=== PATIENT | female | born 1950 | race African-American/Black ===

== ENCOUNTER 2018-02-25 09:15 | Inpatient (IN) ==
[2018-02-25] MEDS ORDERED: LEVOFLOXACIN INJ 750 MG in PREMIX 1 EACH IV STA (09:36)
[2018-02-25] MEDS ORDERED: methylPREDNISolone SOD SUC 125 MG/2 ML VIAL IV STA (09:36)
[2018-02-25] MEDS ORDERED: ALBUTEROL 2.5 MG/3 ML NEB RESP TX SCH (10:00)
[2018-02-25 10:02] LABS: Basophils # 0.1 10*3/uL (0.0-0.2); Basophils % 0.3 % (0.0-0.8); Eosinophils % 0.1 % (0.00-10.9); Hematocrit 46.2 VOL% (35.7-47.0); Hemoglobin 15.5 GM/DL (12.0-16.0); Immature Granulocytes % 0.5 %; Immature Granulocytes Absolute 0.09 #; Lymphocytes # 1.2 10*3/uL (1.4-4.0); Lymphocytes % 6.6 % (21.3-54.2); Mean Corpuscular HGB Conc 33.5 GM/DL (32-36); Mean Corpuscular Hemoglobin 33 PG (27-34); Mean Corpuscular Volume 99.6 FL (87-102); Monocytes # 1.1 10*3/uL (0.11-0.8); Neutrophils # 16.1 10*3/uL (1.4-7.4); Neutrophils % 86.5 % (38.7-73.9); Platelet Count 169 T/CUMM (130-400); Red Blood Count 4.64 MC/CUMM (3.8-5.5); Red Cell Distribution Width 13.9 % (9.3-17.3); White Blood Count 18.5 T/CUMM (4-12)
[2018-02-25 10:17] LABS: Apearance,Urine Slightly Hazy (Clear); Bacteria,Urine Occasional /HPF (Few); Bilirubin,Urine Negative (Negative); Blood, Urine Small mg/dL (Negative); Glucose,Urine (UA) Negative (Negative); Ketones,Urine Negative (Negative); Mucus,Urine Occasional /LPF (Occasional); Nitrite,Urine Negative (Negative); Protein,Urine Negative; RBC,Urine 4 /HPF (0-4); Squamous Epithelial Cell,Urine Occasional /HPF (0-10); Urine Color Yellow (Yellow); Urine Specific Gravity 1.018 (1.001-1.035); Urine Urobilinogen < 2.0 EU/DL (0.2-1.0); WBC,Urine 1 /HPF (0-6)
[2018-02-25 10:20] LABS: Alanine Aminotransferase 37 U/L (13-56); Albumin 3.4 G/DL (3.4-5.0); Alkaline Phosphatase 73 U/L (45-117); Aspartate Amino Transferase 38 U/L (0-37); Bilirubin,Total < 0.39 MG/DL (0.2-1.0); Blood Urea Nitrogen 20 MG/DL (7-18); Calcium 10.1 MG/DL (8.5-10.1); Glucose 157 MG/DL (74-106); Potassium 3.2 MMOL/L (3.5-5.1); Sodium 143 MMOL/L (136-145); Total Protein 7.3 G/DL (6.4-8.3)
[2018-02-25] MEDS ORDERED: IPRATROPIUM 500 MCG/2.5 ML NEB RESP TX STA (11:19)
[2018-02-25] MEDS ORDERED: ACETAMINOPHEN 325 MG TABLET PO PRN (11:21)
[2018-02-25] MEDS ORDERED: MAGNESIUM SULF RIDER 2 GM in PREMIX 1 EACH IV ONE (11:21)
[2018-02-25] MEDS ORDERED: ONDANSETRON 4 MG/2 ML VIAL IV PRN (11:21)
[2018-02-25] MEDS: ALBUTEROL 2.5 MG/3 ML NEB RESP TX SCH ×5 (12:47→21:17)
[2018-02-25] MEDS ORDERED: ALBUTEROL 2.5 MG/3 ML NEB RESP TX PRN (14:28)
[2018-02-25] MEDS: SODIUM CHLORIDE 0.45% 1,000 ML IV SCH ×2 (15:10→19:00)
[2018-02-25] MEDS: methylPREDNISolone SOD SUC 125 MG/2 ML VIAL IV SCH ×2 (16:42→23:20)
[2018-02-25] MEDS: POTASSIUM CHLORIDE 10 MEQ TABLET PO SCH (16:42)
[2018-02-25] MEDS ORDERED: ALBUTEROL/IPRATROPIUM 3 ML NEB RESP TX PRN (21:11)
[2018-02-25] MEDS: ALBUTEROL/IPRATROPIUM 3 ML NEB RESP TX SCH (22:25)
[2018-02-25] MEDS: cloNIDine 0.1 MG TABLET PO SCH (23:25)
[2018-02-25] MEDS: MONTELUKAST 10 MG TABLET PO SCH (23:25)
[2018-02-25] MEDS: FLUTICASONE/SALMETEROL 250-50 DISKUS 14 DOSE INH SCH (23:26)
[2018-02-25] MEDS: DOCUSATE SODIUM 100 MG CAPSULE PO SCH (23:26)
[2018-02-25] MEDS: ENOXAPARIN 40 MG/0.4 ML SYRINGE SUBCUT SCH (23:27)
[2018-02-26] MEDS: SODIUM CHLORIDE 0.45% 1,000 ML IV SCH (01:00)
[2018-02-26] MEDS: ALBUTEROL/IPRATROPIUM 3 ML NEB RESP TX SCH ×5 (03:52→20:09)
[2018-02-26] MEDS: methylPREDNISolone SOD SUC 125 MG/2 ML VIAL IV SCH (04:45)
[2018-02-26 08:07] LABS: Basophils % 0.1 % (0.0-0.8); Hemoglobin 14.4 GM/DL (12.0-16.0); Immature Granulocytes % 0.8 %; Immature Granulocytes Absolute 0.17 #; Mean Corpuscular HGB Conc 32.7 GM/DL (32-36); Mean Corpuscular Hemoglobin 33 PG (27-34); Mean Platelet Volume 11.7 FL (9.6-12.0); Monocytes # 0.5 10*3/uL (0.11-0.8); Monocytes % 2.3 % (1.7-12.7); Neutrophils # 18.7 10*3/uL (1.4-7.4); Neutrophils % 91.8 % (38.7-73.9); Platelet Count 182 T/CUMM (130-400); Red Cell Distribution Width 14.1 % (9.3-17.3); White Blood Count 20.4 T/CUMM (4-12)
[2018-02-26 08:25] LABS: Calcium 9.6 MG/DL (8.5-10.1); Osmolality,Calculated 282.4 MOS/KG (273-304); Potassium 3.8 MMOL/L (3.5-5.1)
[2018-02-26 08:36] LABS: Band Neutrophils 2 % (0-10); Hypochromasia 1+; Lymphocytes 4 % (20-55); Ovalocytes Slight; Platelet Estimate Adequate; Segmented Neutrophils 94 % (50-85); Total Cells Counted 100
[2018-02-26 09:39] LABS: ABG Base Excess -0.2 MMOL/L (-2.5-2.5); ABG HCO3 24.1 MMOL/L (20-26); ABG Oxygen Saturation 94.5 % (95-100); ABG PCO2 40.6 MM HG (35-48); ABG PH 7.391 (7.35-7.45); ABG PO2 75.6 MM HG (80-95); ABG TCO2 21.1 MMOL/L (23-27)
[2018-02-26] MEDS: hydroCHLOROthiazide 12.5 MG CAPSULE PO SCH (10:04)
[2018-02-26] MEDS: POTASSIUM CHLORIDE 10 MEQ TABLET PO SCH ×2 (10:05→16:29)
[2018-02-26] MEDS: FLUTICASONE/SALMETEROL 250-50 DISKUS 14 DOSE INH SCH ×2 (10:05→21:16)
[2018-02-26] MEDS: DOCUSATE SODIUM 100 MG CAPSULE PO SCH ×2 (10:05→21:12)
[2018-02-26] MEDS: LOSARTAN 50 MG TABLET PO SCH (10:05)
[2018-02-26] MEDS: CYANOCOBALAMIN 500 MCG TABLET PO SCH (10:05)
[2018-02-26] MEDS: ESTRADIOL 2 MG TABLET PO SCH (10:05)
[2018-02-26] MEDS: PANTOPRAZOLE 40 MG TABLET PO SCH (10:06)
[2018-02-26] MEDS: SODIUM CHLOR 0.45% KCL 20 MEQ 20 MEQ/1,000 ML BAG IV SCH ×2 (10:08→20:32)
[2018-02-26] MEDS: LEVOFLOXACIN INJ 500 MG in PREMIX 1 EACH IV SCH (10:11)
[2018-02-26] MEDS: POTASSIUM CHLORIDE RIDER 10 MEQ in PREMIX 1 EACH IV SCH ×4 (13:19→17:00)
[2018-02-26] MEDS: methylPREDNISolone SOD SUC 40 MG/1 ML VIAL IV SCH (21:12)
[2018-02-26] MEDS: cloNIDine 0.1 MG TABLET PO SCH (21:12)
[2018-02-26] MEDS: MONTELUKAST 10 MG TABLET PO SCH (21:12)
[2018-02-26] MEDS: ENOXAPARIN 40 MG/0.4 ML SYRINGE SUBCUT SCH (21:15)
[2018-02-27] MEDS: ALBUTEROL/IPRATROPIUM 3 ML NEB RESP TX SCH ×7 (00:07→23:52)
[2018-02-27 04:00] LABS: Basophils % 0.1 % (0.0-0.8); Hematocrit 41.9 VOL% (35.7-47.0); Hemoglobin 13.4 GM/DL (12.0-16.0); Immature Granulocytes % 1.4 %; Immature Granulocytes Absolute 0.25 #; Lymphocytes # 0.7 10*3/uL (1.4-4.0); Lymphocytes % 4.2 % (21.3-54.2); Mean Corpuscular Hemoglobin 33 PG (27-34); Mean Corpuscular Volume 102.7 FL (87-102); Mean Platelet Volume 11.7 FL (9.6-12.0); Monocytes % 5.4 % (1.7-12.7); Neutrophils # 15.7 10*3/uL (1.4-7.4); Neutrophils % 88.9 % (38.7-73.9); Platelet Count 194 T/CUMM (130-400); Red Blood Count 4.08 MC/CUMM (3.8-5.5); Red Cell Distribution Width 14.3 % (9.3-17.3); White Blood Count 17.6 T/CUMM (4-12)
[2018-02-27 04:24] LABS: Calcium 9.6 MG/DL (8.5-10.1); Osmolality,Calculated 287.1 MOS/KG (273-304); Potassium 4.9 MMOL/L (3.5-5.1); Risk Ratio 2.66; VLDL CHOLESTEROL 12.2 MG/DL
[2018-02-27] MEDS: SODIUM CHLOR 0.45% KCL 20 MEQ 20 MEQ/1,000 ML BAG IV SCH ×3 (04:39→22:32)
[2018-02-27 04:45] LABS: Lymphocytes 5 % (20-55); Myelocytes 1 %; Platelet Estimate Adequate; Polychromasia Few; Segmented Neutrophils 92 % (50-85); Total Cells Counted 100
[2018-02-27] MEDS: FLUTICASONE/SALMETEROL 250-50 DISKUS 14 DOSE INH SCH ×2 (08:20→21:06)
[2018-02-27] MEDS: LOSARTAN 50 MG TABLET PO SCH (08:21)
[2018-02-27] MEDS: CYANOCOBALAMIN 500 MCG TABLET PO SCH (08:21)
[2018-02-27] MEDS: ESTRADIOL 2 MG TABLET PO SCH (08:21)
[2018-02-27] MEDS: hydroCHLOROthiazide 12.5 MG CAPSULE PO SCH (08:21)
[2018-02-27] MEDS: PANTOPRAZOLE 40 MG TABLET PO SCH (08:22)
[2018-02-27] MEDS: POTASSIUM CHLORIDE 10 MEQ TABLET PO SCH ×2 (08:22→16:14)
[2018-02-27] MEDS: LEVOFLOXACIN INJ 500 MG in PREMIX 1 EACH IV SCH (08:22)
[2018-02-27] MEDS: methylPREDNISolone SOD SUC 40 MG/1 ML VIAL IV SCH ×2 (08:22→21:05)
[2018-02-27] MEDS: DOCUSATE SODIUM 100 MG CAPSULE PO SCH ×2 (08:22→21:05)
[2018-02-27] MEDS: MONTELUKAST 10 MG TABLET PO SCH (21:05)
[2018-02-27] MEDS: cloNIDine 0.1 MG TABLET PO SCH (21:05)
[2018-02-27] MEDS: ENOXAPARIN 40 MG/0.4 ML SYRINGE SUBCUT SCH (21:05)
[2018-02-28] MEDS: ALBUTEROL/IPRATROPIUM 3 ML NEB RESP TX SCH ×6 (03:43→23:42)
[2018-02-28 05:53] LABS: Basophils % 0.2 % (0.0-0.8); Hematocrit 42.5 VOL% (35.7-47.0); Hemoglobin 13.1 GM/DL (12.0-16.0); Immature Granulocytes Absolute 0.27 #; Lymphocytes # 1.4 10*3/uL (1.4-4.0); Lymphocytes % 9.9 % (21.3-54.2); Mean Corpuscular HGB Conc 30.8 GM/DL (32-36); Mean Corpuscular Hemoglobin 32 PG (27-34); Mean Corpuscular Volume 104.2 FL (87-102); Mean Platelet Volume 11.6 FL (9.6-12.0); Monocytes # 0.8 10*3/uL (0.11-0.8); Monocytes % 6.1 % (1.7-12.7); Neutrophils # 11.2 10*3/uL (1.4-7.4); Neutrophils % 81.8 % (38.7-73.9); Platelet Count 200 T/CUMM (130-400); Red Blood Count 4.08 MC/CUMM (3.8-5.5); Red Cell Distribution Width 14.3 % (9.3-17.3); White Blood Count 13.6 T/CUMM (4-12)
[2018-02-28 06:25] LABS: Calcium 9.6 MG/DL (8.5-10.1); Osmolality,Calculated 282.3 MOS/KG (273-304); Potassium 4.5 MMOL/L (3.5-5.1)
[2018-02-28] MEDS: PANTOPRAZOLE 40 MG TABLET PO SCH (09:10)
[2018-02-28] MEDS: POTASSIUM CHLORIDE 10 MEQ TABLET PO SCH ×2 (09:10→17:05)
[2018-02-28] MEDS: CYANOCOBALAMIN 500 MCG TABLET PO SCH (09:10)
[2018-02-28] MEDS: ESTRADIOL 2 MG TABLET PO SCH (09:10)
[2018-02-28] MEDS: hydroCHLOROthiazide 12.5 MG CAPSULE PO SCH (09:10)
[2018-02-28] MEDS: LOSARTAN 50 MG TABLET PO SCH (09:10)
[2018-02-28] MEDS: DOCUSATE SODIUM 100 MG CAPSULE PO SCH ×2 (09:10→20:21)
[2018-02-28] MEDS: methylPREDNISolone SOD SUC 40 MG/1 ML VIAL IV SCH ×2 (09:11→20:20)
[2018-02-28] MEDS: FLUTICASONE/SALMETEROL 250-50 DISKUS 14 DOSE INH SCH ×2 (09:11→20:25)
[2018-02-28] MEDS: LEVOFLOXACIN INJ 500 MG in PREMIX 1 EACH IV SCH (09:11)
[2018-02-28] MEDS: SODIUM CHLOR 0.45% KCL 20 MEQ 20 MEQ/1,000 ML BAG IV SCH (11:38)
[2018-02-28] MEDS: MONTELUKAST 10 MG TABLET PO SCH (20:21)
[2018-02-28] MEDS: cloNIDine 0.1 MG TABLET PO SCH (20:21)
[2018-02-28] MEDS: ENOXAPARIN 40 MG/0.4 ML SYRINGE SUBCUT SCH (20:24)
[2018-03-01] MEDS: SODIUM CHLOR 0.45% KCL 20 MEQ 20 MEQ/1,000 ML BAG IV SCH ×2 (00:55→06:14)
[2018-03-01] MEDS: ALBUTEROL/IPRATROPIUM 3 ML NEB RESP TX SCH ×2 (03:48→07:05)
[2018-03-01 04:59] LABS: Basophils # 0.1 10*3/uL (0.0-0.2); Basophils % 0.3 % (0.0-0.8); Hematocrit 43.7 VOL% (35.7-47.0); Hemoglobin 13.9 GM/DL (12.0-16.0); Immature Granulocytes Absolute 0.48 #; Lymphocytes # 2.3 10*3/uL (1.4-4.0); Lymphocytes % 14.5 % (21.3-54.2); Mean Corpuscular HGB Conc 31.8 GM/DL (32-36); Mean Corpuscular Hemoglobin 33 PG (27-34); Mean Corpuscular Volume 103.1 FL (87-102); Mean Platelet Volume 11.2 FL (9.6-12.0); Monocytes # 1.1 10*3/uL (0.11-0.8); Neutrophils # 11.9 10*3/uL (1.4-7.4); Neutrophils % 75.2 % (38.7-73.9); Platelet Count 211 T/CUMM (130-400); Red Blood Count 4.24 MC/CUMM (3.8-5.5); Red Cell Distribution Width 14.2 % (9.3-17.3); White Blood Count 15.8 T/CUMM (4-12)
[2018-03-01 05:23] LABS: Calcium 9.4 MG/DL (8.5-10.1); Osmolality,Calculated 282.4 MOS/KG (273-304); Potassium 4.2 MMOL/L (3.5-5.1)
[2018-03-01 07:10] VITALS: BP 121/84
[2018-03-01] MEDS: hydroCHLOROthiazide 12.5 MG CAPSULE PO SCH (08:49)
[2018-03-01] MEDS: CYANOCOBALAMIN 500 MCG TABLET PO SCH (08:49)
[2018-03-01] MEDS: ESTRADIOL 2 MG TABLET PO SCH (08:49)
[2018-03-01] MEDS: POTASSIUM CHLORIDE 10 MEQ TABLET PO SCH (08:49)
[2018-03-01] MEDS: LOSARTAN 50 MG TABLET PO SCH (08:50)
[2018-03-01] MEDS: PANTOPRAZOLE 40 MG TABLET PO SCH (08:50)
[2018-03-01] MEDS: DOCUSATE SODIUM 100 MG CAPSULE PO SCH (08:50)
[2018-03-01] MEDS: FLUTICASONE/SALMETEROL 250-50 DISKUS 14 DOSE INH SCH (08:50)
[2018-03-01] MEDS: LEVOFLOXACIN INJ 500 MG in PREMIX 1 EACH IV SCH (08:53)
[2018-03-01] MEDS ORDERED: predniSONE 20 MG TABLET PO SCH (09:00)
== END 2018-03-01 10:04 | disposition home or self-care (01) | DRG 192 ==
LOC: N.ED 09:15 → N.EDINP 11:21 → N.2E 11:51
PROVIDERS: ADMIT Family Medicine; ATTEND Family Medicine

== ENCOUNTER 2020-11-17 08:01 | Inpatient (IN) ==
[2020-11-17] MEDS ORDERED: ALBUTEROL 2.5 MG/3 ML NEB RESP TX STA (08:25)
[2020-11-17 08:42] LABS: Basophils % 0.1 % (0.0-0.8); Hematocrit 45.2 VOL% (35.7-47.0); Hemoglobin 14.3 GM/DL (12.0-16.0); Immature Granulocytes % 0.5 %; Immature Granulocytes Absolute 0.04 #; Lymphocytes % 13.1 % (21.3-54.2); Mean Corpuscular HGB Conc 31.6 GM/DL (32-36); Mean Corpuscular Volume 101.8 FL (87-102); Mean Platelet Volume 11.1 FL (9.6-12.0); Neutrophils % 84.3 % (38.7-73.9); Platelet Count 255 T/CUMM (130-400); Red Blood Count 4.44 MC/CUMM (3.8-5.5); Red Cell Distribution Width 13.4 % (9.3-17.3)
[2020-11-17 09:03] LABS: PT Patient Result 11.1 SECS (10.5-12.0); Partial Thromboplastin Time 31.3 SECS (23.9-33.8)
[2020-11-17 09:08] LABS: Alanine Aminotransferase 34 U/L (13-56); Albumin 3.5 G/DL (3.4-5.0); Alkaline Phosphatase 75 U/L (45-117); Aspartate Amino Transferase 23 U/L (0-37); Bilirubin,Total < 0.39 MG/DL (0.20-1.00); Blood Urea Nitrogen 10 MG/DL (7-18); Calcium 10.2 MG/DL (8.5-10.1); Carbon Dioxide 26 MMOL/L (21-32); Estimated Glom Filtration Rate 89 ML/MIN; Glucose 173 MG/DL (74-106); Osmolality,Calculated 277.7 MOS/KG (273-304); Potassium 4.3 MMOL/L (3.5-5.1); Sodium 138 MMOL/L (136-145); Total Protein 7.6 G/DL (6.4-8.2)
[2020-11-17 09:11] LABS: ABG Base Excess 0.5 MMOL/L (-2.5-2.5); ABG HCO3 24.8 MMOL/L (20-26); ABG Oxygen Saturation 93.8 % (95-100); ABG PCO2 44.2 MM HG (35-48); ABG PH 7.378 (7.35-7.45); ABG PO2 72.5 MM HG (80-95); ABG TCO2 22.4 MMOL/L (23-27)
[2020-11-17] MEDS ORDERED: LEVOFLOXACIN INJ 750 MG in PREMIX 1 EACH IV STA (09:36)
[2020-11-17] MEDS ORDERED: methylPREDNISolone SOD SUC 125 MG/2 ML VIAL IV STA (09:37)
[2020-11-17] MEDS ORDERED: ALBUTEROL 2.5 MG/3 ML NEB RESP TX SCH (11:44)
[2020-11-17] MEDS ORDERED: ONDANSETRON 4 MG/2 ML VIAL IV PRN (11:44)
[2020-11-17] MEDS ORDERED: ACETAMINOPHEN 325 MG TABLET PO PRN (11:44)
[2020-11-17] MEDS ORDERED: ALBUTEROL/IPRATROPIUM 3 ML NEB RESP TX PRN (12:07)
[2020-11-17] MEDS ORDERED: BENZONATATE 100 MG CAPSULE PO PRN (12:07)
[2020-11-17] MEDS ORDERED: MAGNESIUM HYDROXIDE SUSP 30 ML UDCUP PO PRN (12:07)
[2020-11-17] MEDS: SODIUM CHLORIDE 0.9% 1,000 ML IV SCH ×2 (12:17→21:33)
[2020-11-17] MEDS: hydroCHLOROthiazide 12.5 MG CAPSULE PO SCH (14:35)
[2020-11-17] MEDS: OXYBUTYNIN XL 10 MG TABLET PO SCH (14:35)
[2020-11-17] MEDS: ALPRAZolam 0.5 MG TABLET PO PRN (14:36)
[2020-11-17] MEDS ORDERED: methylPREDNISolone SOD SUC 125 MG/2 ML VIAL IV SCH (16:00)
[2020-11-17] MEDS: POTASSIUM CHLORIDE 10 MEQ TABLET PO SCH (18:10)
[2020-11-17] MEDS: methylPREDNISolone SOD SUC 40 MG/1 ML VIAL IV SCH (18:10)
[2020-11-17] MEDS: ZALEPLON 5 MG CAPSULE PO PRN (21:34)
[2020-11-17] MEDS: DOCUSATE SODIUM 100 MG CAPSULE PO SCH (21:34)
[2020-11-17] MEDS: GABAPENTIN 300 MG CAPSULE PO SCH (21:34)
[2020-11-17] MEDS: BUDESONIDE/FORMOTEROL 160-4.5 INHALER 6 GM INH SCH (21:35)
[2020-11-18] MEDS: methylPREDNISolone SOD SUC 40 MG/1 ML VIAL IV SCH ×4 (02:09→22:44)
[2020-11-18] MEDS: SODIUM CHLORIDE 0.9% 1,000 ML IV SCH ×3 (04:26→15:54)
[2020-11-18 05:21] LABS: Basophils % 0.2 % (0.0-0.8); Hematocrit 42.5 VOL% (35.7-47.0); Immature Granulocytes % 0.4 %; Immature Granulocytes Absolute 0.07 #; Lymphocytes % 10.7 % (21.3-54.2); Mean Corpuscular HGB Conc 32.9 GM/DL (32-36); Mean Corpuscular Volume 100.5 FL (87-102); Monocytes % 4.1 % (1.7-12.7); Neutrophils % 84.6 % (38.7-73.9); Platelet Count 256 T/CUMM (130-400); Red Blood Count 4.23 MC/CUMM (3.8-5.5); Red Cell Distribution Width 13.6 % (9.3-17.3); White Blood Count 18.7 T/CUMM (4-12)
[2020-11-18 05:46] LABS: Calcium 10.2 MG/DL (8.5-10.1); Osmolality,Calculated 281.4 MOS/KG (273-304); Potassium 4.1 MMOL/L (3.5-5.1)
[2020-11-18] MEDS: hydroCHLOROthiazide 12.5 MG CAPSULE PO SCH (09:26)
[2020-11-18] MEDS: POTASSIUM CHLORIDE 10 MEQ TABLET PO SCH ×2 (09:26→17:24)
[2020-11-18] MEDS: OXYBUTYNIN XL 10 MG TABLET PO SCH (09:27)
[2020-11-18] MEDS: DOCUSATE SODIUM 100 MG CAPSULE PO SCH ×2 (09:27→22:44)
[2020-11-18] MEDS: PANTOPRAZOLE 40 MG TABLET PO SCH (09:27)
[2020-11-18] MEDS: LEVOFLOXACIN INJ 750 MG/150 ML PREMIX IV SCH (09:27)
[2020-11-18] MEDS: BUDESONIDE/FORMOTEROL 160-4.5 INHALER 6 GM INH SCH ×2 (09:28→22:45)
[2020-11-18] MEDS: ALBUTEROL/IPRATROPIUM 3 ML NEB RESP TX SCH ×4 (12:19→23:30)
[2020-11-18] MEDS: ALPRAZolam 0.5 MG TABLET PO PRN ×2 (15:55→22:51)
[2020-11-18] MEDS: GABAPENTIN 300 MG CAPSULE PO SCH (22:44)
[2020-11-18] MEDS: ZALEPLON 5 MG CAPSULE PO PRN (22:51)
[2020-11-19] MEDS: SODIUM CHLORIDE 0.9% 1,000 ML IV SCH ×3 (02:37→23:16)
[2020-11-19] MEDS: ALBUTEROL/IPRATROPIUM 3 ML NEB RESP TX SCH ×6 (03:00→23:59)
[2020-11-19] MEDS: methylPREDNISolone SOD SUC 40 MG/1 ML VIAL IV SCH ×4 (04:56→22:29)
[2020-11-19 05:25] LABS: Basophils % 0.2 % (0.0-0.8); Eosinophils % 0.2 % (0.00-10.9); Hematocrit 41.7 VOL% (35.7-47.0); Hemoglobin 13.4 GM/DL (12.0-16.0); Immature Granulocytes % 1.2 %; Immature Granulocytes Absolute 0.23 #; Lymphocytes # 1.7 10*3/uL (1.4-4.0); Lymphocytes % 9.1 % (21.3-54.2); Mean Corpuscular HGB Conc 32.1 GM/DL (32-36); Mean Corpuscular Volume 101.2 FL (87-102); Mean Platelet Volume 10.7 FL (9.6-12.0); Monocytes % 3.8 % (1.7-12.7); Neutrophils % 85.5 % (38.7-73.9); Platelet Count 277 T/CUMM (130-400); Red Blood Count 4.12 MC/CUMM (3.8-5.5); Red Cell Distribution Width 13.5 % (9.3-17.3); White Blood Count 18.9 T/CUMM (4-12)
[2020-11-19 05:52] LABS: Calcium 9.4 MG/DL (8.5-10.1); Osmolality,Calculated 282.4 MOS/KG (273-304); Potassium 3.8 MMOL/L (3.5-5.1)
[2020-11-19] MEDS: LEVOFLOXACIN INJ 750 MG/150 ML PREMIX IV SCH (09:57)
[2020-11-19] MEDS: OXYBUTYNIN XL 10 MG TABLET PO SCH (09:58)
[2020-11-19] MEDS: hydroCHLOROthiazide 12.5 MG CAPSULE PO SCH (09:58)
[2020-11-19] MEDS: BUDESONIDE/FORMOTEROL 160-4.5 INHALER 6 GM INH SCH ×2 (09:59→22:35)
[2020-11-19] MEDS: DOCUSATE SODIUM 100 MG CAPSULE PO SCH ×2 (09:59→22:29)
[2020-11-19] MEDS: POTASSIUM CHLORIDE 10 MEQ TABLET PO SCH ×2 (09:59→17:06)
[2020-11-19] MEDS: PANTOPRAZOLE 40 MG TABLET PO SCH (09:59)
[2020-11-19] MEDS: ALPRAZolam 0.5 MG TABLET PO PRN ×2 (10:04→22:29)
[2020-11-19] MEDS: GABAPENTIN 300 MG CAPSULE PO SCH (22:29)
[2020-11-20] MEDS: ALBUTEROL/IPRATROPIUM 3 ML NEB RESP TX SCH ×5 (03:54→19:30)
[2020-11-20 04:05] LABS: Basophils % 0.2 % (0.0-0.8); Hematocrit 40.7 VOL% (35.7-47.0); Hemoglobin 13.1 GM/DL (12.0-16.0); Immature Granulocytes % 4.3 %; Immature Granulocytes Absolute 0.82 #; Lymphocytes # 1.4 10*3/uL (1.4-4.0); Lymphocytes % 7.4 % (21.3-54.2); Mean Corpuscular HGB Conc 32.2 GM/DL (32-36); Mean Corpuscular Volume 100.7 FL (87-102); Mean Platelet Volume 10.5 FL (9.6-12.0); Monocytes % 4.5 % (1.7-12.7); Neutrophils % 83.6 % (38.7-73.9); Platelet Count 293 T/CUMM (130-400); Red Blood Count 4.04 MC/CUMM (3.8-5.5); Red Cell Distribution Width 13.5 % (9.3-17.3); White Blood Count 18.9 T/CUMM (4-12)
[2020-11-20 04:29] LABS: Lymphocytes 2 % (20-55); Platelet Estimate Adequate; Segmented Neutrophils 93 % (50-85); Total Cells Counted 100
[2020-11-20 04:30] LABS: Hypochromasia Slight; Microcytosis Slight
[2020-11-20 04:39] LABS: Calcium 9.6 MG/DL (8.5-10.1); Potassium 3.3 MMOL/L (3.5-5.1)
[2020-11-20] MEDS: methylPREDNISolone SOD SUC 40 MG/1 ML VIAL IV SCH ×4 (05:20→21:25)
[2020-11-20] MEDS: DOCUSATE SODIUM 100 MG CAPSULE PO SCH ×2 (09:43→21:25)
[2020-11-20] MEDS: OXYBUTYNIN XL 10 MG TABLET PO SCH (09:43)
[2020-11-20] MEDS: hydroCHLOROthiazide 12.5 MG CAPSULE PO SCH (09:43)
[2020-11-20] MEDS: PANTOPRAZOLE 40 MG TABLET PO SCH (09:44)
[2020-11-20] MEDS: LEVOFLOXACIN INJ 750 MG/150 ML PREMIX IV SCH (09:47)
[2020-11-20] MEDS: POTASSIUM CHLORIDE 10 MEQ TABLET PO SCH (09:50)
[2020-11-20] MEDS: POTASSIUM CHLORIDE INJ 20 MEQ in SODIUM CHLORIDE 0.9% 1,000 ML IV SCH ×2 (11:03→21:31)
[2020-11-20] MEDS: POTASSIUM CHLORIDE RIDER 10 MEQ/100 ML PREMIX IV SCH ×2 (11:04→12:15)
[2020-11-20] MEDS: BUDESONIDE/FORMOTEROL 160-4.5 INHALER 6 GM INH SCH ×2 (11:09→21:25)
[2020-11-20] MEDS: SODIUM CHLORIDE 0.9% 1,000 ML IV SCH (12:16)
[2020-11-20] MEDS: POTASSIUM CHLORIDE 20 MEQ TABLET PO SCH ×2 (13:39→21:25)
[2020-11-20] MEDS: GABAPENTIN 300 MG CAPSULE PO SCH (21:25)
[2020-11-20] MEDS: ALPRAZolam 0.5 MG TABLET PO PRN (21:25)
[2020-11-21] MEDS: ALBUTEROL/IPRATROPIUM 3 ML NEB RESP TX SCH ×7 (00:45→23:32)
[2020-11-21 04:26] LABS: Basophils # 0.1 10*3/uL (0.0-0.2); Basophils % 0.3 % (0.0-0.8); Eosinophils % 0.1 % (0.00-10.9); Hematocrit 41.9 VOL% (35.7-47.0); Hemoglobin 13.5 GM/DL (12.0-16.0); Immature Granulocytes % 5.4 %; Immature Granulocytes Absolute 1.04 #; Lymphocytes # 1.7 10*3/uL (1.4-4.0); Lymphocytes % 8.7 % (21.3-54.2); Mean Corpuscular HGB Conc 32.2 GM/DL (32-36); Mean Corpuscular Volume 101.9 FL (87-102); Mean Platelet Volume 10.7 FL (9.6-12.0); Monocytes % 5.7 % (1.7-12.7); NRBC # 0.02 10*3/uL; Neutrophils % 79.8 % (38.7-73.9); Platelet Count 327 T/CUMM (130-400); Red Blood Count 4.11 MC/CUMM (3.8-5.5); Red Cell Distribution Width 13.8 % (9.3-17.3); White Blood Count 19.4 T/CUMM (4-12)
[2020-11-21 04:47] LABS: Calcium 9.4 MG/DL (8.5-10.1); Osmolality,Calculated 284.3 MOS/KG (273-304); Potassium 4.1 MMOL/L (3.5-5.1)
[2020-11-21] MEDS: methylPREDNISolone SOD SUC 40 MG/1 ML VIAL IV SCH ×4 (05:26→22:50)
[2020-11-21 07:41] LABS: Atypical Lymphocytes Few; Band Neutrophils 2 % (0-10); Lymphocytes 21 % (20-55); Metamyelocytes 2 %; Platelet Estimate Normal; Segmented Neutrophils 68 % (50-85); Total Cells Counted 100
[2020-11-21 07:42] LABS: Anisocytosis 1+; Macrocytosis 1+
[2020-11-21] MEDS: POTASSIUM CHLORIDE 20 MEQ TABLET PO SCH ×2 (09:08→21:08)
[2020-11-21] MEDS: DOCUSATE SODIUM 100 MG CAPSULE PO SCH ×2 (09:09→21:07)
[2020-11-21] MEDS: PANTOPRAZOLE 40 MG TABLET PO SCH (09:09)
[2020-11-21] MEDS: OXYBUTYNIN XL 10 MG TABLET PO SCH (09:09)
[2020-11-21] MEDS: hydroCHLOROthiazide 12.5 MG CAPSULE PO SCH (09:10)
[2020-11-21] MEDS: LEVOFLOXACIN INJ 750 MG/150 ML PREMIX IV SCH (09:11)
[2020-11-21] MEDS: BUDESONIDE/FORMOTEROL 160-4.5 INHALER 6 GM INH SCH ×2 (09:11→21:08)
[2020-11-21] MEDS: NYSTATIN 500,000 UNIT/5 ML UDCUP SWISH/SWAL SCH ×3 (14:10→21:18)
[2020-11-21] MEDS ORDERED: DEXTROSE 50% 25 GM/50 ML VIAL IV PRN (14:33)
[2020-11-21] MEDS ORDERED: GLUCAGON 1 MG VIAL IM PRN (14:33)
[2020-11-21] MEDS: SODIUM CHLOR 0.9% KCL 20 MEQ 20 MEQ/1,000 ML BAG IV SCH (16:46)
[2020-11-21] MEDS: ALPRAZolam 0.5 MG TABLET PO PRN (16:49)
[2020-11-21] MEDS: INSULIN LISPRO 100 UNIT/ML SUBCUT SCH ×2 (18:46→21:07)
[2020-11-21] MEDS: GABAPENTIN 300 MG CAPSULE PO SCH (21:08)
[2020-11-22] MEDS: ALBUTEROL/IPRATROPIUM 3 ML NEB RESP TX SCH ×6 (03:11→23:42)
[2020-11-22] MEDS: SODIUM CHLOR 0.9% KCL 20 MEQ 20 MEQ/1,000 ML BAG IV SCH ×2 (03:21→13:47)
[2020-11-22 05:33] LABS: Basophils # 0.1 10*3/uL (0.0-0.2); Basophils % 0.3 % (0.0-0.8); Hemoglobin 13.2 GM/DL (12.0-16.0); Immature Granulocytes % 5.8 %; Immature Granulocytes Absolute 1.25 #; Lymphocytes # 1.5 10*3/uL (1.4-4.0); Lymphocytes % 7.1 % (21.3-54.2); Mean Corpuscular HGB Conc 31.4 GM/DL (32-36); Mean Corpuscular Volume 102.7 FL (87-102); Mean Platelet Volume 10.3 FL (9.6-12.0); Monocytes % 6.7 % (1.7-12.7); NRBC # 0.06 10*3/uL; Neutrophils % 80.1 % (38.7-73.9); Platelet Count 318 T/CUMM (130-400); Red Blood Count 4.09 MC/CUMM (3.8-5.5); Red Cell Distribution Width 14.1 % (9.3-17.3); White Blood Count 21.4 T/CUMM (4-12)
[2020-11-22 05:52] LABS: Albumin 2.8 G/DL (3.4-5.0); Calcium 9.1 MG/DL (8.5-10.1); Osmolality,Calculated 283.1 MOS/KG (273-304); Total Protein 6.1 G/DL (6.4-8.2)
[2020-11-22 07:25] LABS: Anisocytosis 2+; Band Neutrophils 1 % (0-10); Lymphocytes 11 % (20-55); Macrocytosis 1+; Myelocytes 2 %; Nucleated Red Blood Cells 1 (0-5); Platelet Estimate Normal; Segmented Neutrophils 76 % (50-85); Total Cells Counted 100
[2020-11-22] MEDS: methylPREDNISolone SOD SUC 40 MG/1 ML VIAL IV SCH ×3 (09:34→23:36)
[2020-11-22] MEDS: INSULIN LISPRO 100 UNIT/ML SUBCUT SCH ×4 (09:35→21:46)
[2020-11-22] MEDS: OXYBUTYNIN XL 10 MG TABLET PO SCH (09:36)
[2020-11-22] MEDS: POTASSIUM CHLORIDE 20 MEQ TABLET PO SCH ×2 (09:36→21:43)
[2020-11-22] MEDS: hydroCHLOROthiazide 12.5 MG CAPSULE PO SCH (09:36)
[2020-11-22] MEDS: DOCUSATE SODIUM 100 MG CAPSULE PO SCH ×2 (09:36→21:43)
[2020-11-22] MEDS: LEVOFLOXACIN INJ 750 MG/150 ML PREMIX IV SCH (09:36)
[2020-11-22] MEDS: PANTOPRAZOLE 40 MG TABLET PO SCH (09:40)
[2020-11-22] MEDS: NYSTATIN 500,000 UNIT/5 ML UDCUP SWISH/SWAL SCH ×4 (09:40→21:44)
[2020-11-22] MEDS: BUDESONIDE/FORMOTEROL 160-4.5 INHALER 6 GM INH SCH ×2 (09:41→21:44)
[2020-11-22] MEDS: ALPRAZolam 0.5 MG TABLET PO PRN (14:29)
[2020-11-22] MEDS: GABAPENTIN 300 MG CAPSULE PO SCH (21:43)
[2020-11-22] MEDS: ZALEPLON 5 MG CAPSULE PO PRN (23:36)
[2020-11-23] MEDS: ALBUTEROL/IPRATROPIUM 3 ML NEB RESP TX SCH ×6 (03:18→23:23)
[2020-11-23] MEDS: INSULIN LISPRO 100 UNIT/ML SUBCUT SCH ×4 (07:22→20:37)
[2020-11-23] MEDS: SODIUM CHLOR 0.9% KCL 20 MEQ 20 MEQ/1,000 ML BAG IV SCH ×3 (07:45→23:08)
[2020-11-23] MEDS: OXYBUTYNIN XL 10 MG TABLET PO SCH (09:03)
[2020-11-23] MEDS: methylPREDNISolone SOD SUC 40 MG/1 ML VIAL IV SCH ×3 (09:03→23:12)
[2020-11-23] MEDS: POTASSIUM CHLORIDE 20 MEQ TABLET PO SCH ×2 (09:04→20:36)
[2020-11-23] MEDS: BUDESONIDE/FORMOTEROL 160-4.5 INHALER 6 GM INH SCH ×2 (09:04→20:36)
[2020-11-23] MEDS: PANTOPRAZOLE 40 MG TABLET PO SCH (09:04)
[2020-11-23] MEDS: DOCUSATE SODIUM 100 MG CAPSULE PO SCH ×2 (09:04→20:36)
[2020-11-23] MEDS: NYSTATIN 500,000 UNIT/5 ML UDCUP SWISH/SWAL SCH ×4 (09:04→20:36)
[2020-11-23] MEDS: hydroCHLOROthiazide 12.5 MG CAPSULE PO SCH (09:04)
[2020-11-23] MEDS: LEVOFLOXACIN INJ 750 MG/150 ML PREMIX IV SCH (09:06)
[2020-11-23] MEDS: GABAPENTIN 300 MG CAPSULE PO SCH (20:36)
[2020-11-23] MEDS: ZALEPLON 5 MG CAPSULE PO PRN (21:48)
[2020-11-24] MEDS: ALBUTEROL/IPRATROPIUM 3 ML NEB RESP TX SCH ×2 (02:17→08:40)
[2020-11-24 05:05] LABS: Basophils # 0.1 10*3/uL (0.0-0.2); Basophils % 0.2 % (0.0-0.8); Hematocrit 41.8 VOL% (35.7-47.0); Hemoglobin 13.4 GM/DL (12.0-16.0); Immature Granulocytes % 4.4 %; Immature Granulocytes Absolute 0.93 #; Lymphocytes # 1.2 10*3/uL (1.4-4.0); Lymphocytes % 5.5 % (21.3-54.2); Mean Corpuscular HGB Conc 32.1 GM/DL (32-36); Mean Corpuscular Volume 101.5 FL (87-102); Mean Platelet Volume 10.4 FL (9.6-12.0); Monocytes % 4.4 % (1.7-12.7); Neutrophils % 85.5 % (38.7-73.9); Platelet Count 279 T/CUMM (130-400); Red Blood Count 4.12 MC/CUMM (3.8-5.5); Red Cell Distribution Width 14.6 % (9.3-17.3); White Blood Count 21.4 T/CUMM (4-12)
[2020-11-24 05:22] LABS: Albumin 2.8 G/DL (3.4-5.0); Bilirubin,Total 0.7 MG/DL (0.20-1.00); Calcium 9.5 MG/DL (8.5-10.1); Osmolality,Calculated 276.7 MOS/KG (273-304); Potassium 4.2 MMOL/L (3.5-5.1); Total Protein 6.1 G/DL (6.4-8.2)
[2020-11-24 05:37] LABS: Band Neutrophils 1 % (0-10); Lymphocytes 6 % (20-55); Nucleated Red Blood Cells 1 (0-5); Platelet Estimate Normal; Segmented Neutrophils 88 % (50-85); Total Cells Counted 100
[2020-11-24] MEDS: methylPREDNISolone SOD SUC 40 MG/1 ML VIAL IV SCH (06:34)
[2020-11-24] MEDS: INSULIN LISPRO 100 UNIT/ML SUBCUT SCH (07:21)
[2020-11-24] MEDS: SODIUM CHLOR 0.9% KCL 20 MEQ 20 MEQ/1,000 ML BAG IV SCH (07:30)
[2020-11-24] MEDS ORDERED: FLUCONAZOLE 200 MG TABLET PO SCH (09:00)
[2020-11-24] MEDS ORDERED: predniSONE 20 MG TABLET PO SCH (09:00)
[2020-11-24] MEDS: LEVOFLOXACIN INJ 750 MG/150 ML PREMIX IV SCH (09:00)
[2020-11-24] MEDS ORDERED: LEVOFLOXACIN 500 MG TABLET PO SCH (09:00)
[2020-11-24] MEDS: OXYBUTYNIN XL 10 MG TABLET PO SCH (09:14)
[2020-11-24] MEDS: DOCUSATE SODIUM 100 MG CAPSULE PO SCH (09:14)
[2020-11-24] MEDS: PANTOPRAZOLE 40 MG TABLET PO SCH (09:15)
[2020-11-24] MEDS: NYSTATIN 500,000 UNIT/5 ML UDCUP SWISH/SWAL SCH (09:15)
[2020-11-24] MEDS: hydroCHLOROthiazide 12.5 MG CAPSULE PO SCH (09:15)
[2020-11-24] MEDS: POTASSIUM CHLORIDE 20 MEQ TABLET PO SCH (09:15)
[2020-11-24] MEDS: BUDESONIDE/FORMOTEROL 160-4.5 INHALER 6 GM INH SCH (09:16)
[2020-11-24 11:07] VITALS: BP 154/79
== END 2020-11-24 11:05 | disposition home or self-care (01) | DRG 191 ==
LOC: EDBD → EDUNIT# → N.ED 08:01 → N.EDINP 08:01 → N.3E 11:33
PROVIDERS: ADMIT Family Medicine; ATTEND Family Medicine

== ENCOUNTER 2022-02-19 12:25 | Inpatient (IN) ==
[2022-02-19] MEDS ORDERED: ALBUTEROL/IPRATROPIUM 3 ML NEB RESP TX STA ×2 (12:56→20:10)
[2022-02-19] MEDS ORDERED: ASPIRIN 325 MG TABLET PO STA (12:56)
[2022-02-19] MEDS ORDERED: SODIUM CHLORIDE 0.9% 1,000 ML IV STA (12:56)
[2022-02-19] MEDS ORDERED: methylPREDNISolone SOD SUC 125 MG/2 ML VIAL IV STA (12:56)
[2022-02-19 13:58] LABS: Basophils % 0.3 % (0.0-0.8); Eosinophils # 0.1 10*3/uL (0.0-0.87); Eosinophils % 0.4 % (0.00-10.9); Hematocrit 39.5 VOL% (35.7-47.0); Hemoglobin 12.8 GM/DL (12.0-16.0); Immature Granulocytes % 0.4 %; Immature Granulocytes Absolute 0.05 #; Lymphocytes # 2.6 10*3/uL (1.4-4.0); Lymphocytes % 18.6 % (21.3-54.2); Mean Corpuscular HGB Conc 32.4 GM/DL (32-36); Mean Corpuscular Volume 102.3 FL (87-102); Mean Platelet Volume 10.6 FL (9.6-12.0); Monocytes # 1.7 10*3/uL (0.11-0.8); Neutrophils % 68.3 % (38.7-73.9); Platelet Count 201 T/CUMM (130-400); Red Blood Count 3.86 MC/CUMM (3.8-5.5); Red Cell Distribution Width 13.6 % (9.3-17.3)
[2022-02-19] MEDS ORDERED: LEVOFLOXACIN INJ 750 MG/150 ML PREMIX IV STA (14:12)
[2022-02-19] MEDS ORDERED: ALBUTEROL 2.5 MG/3 ML NEB RESP TX STA (14:12)
[2022-02-19 14:16] LABS: Bilirubin,Total 0.8 MG/DL (0.20-1.00); Osmolality,Calculated 281.3 MOS/KG (273-304); Potassium 3.6 MMOL/L (3.5-5.1)
[2022-02-19 14:27] LABS: Band Neutrophils 27 % (0-10); Lymphocytes 22 % (20-55); Total Cells Counted 100
[2022-02-19 14:28] LABS: Macrocytosis 1+; Platelet Estimate Normal
[2022-02-19] MEDS ORDERED: OSELTAMIVIR 75 MG CAPSULE PO ONE ×2 (14:34→21:00)
[2022-02-19] MEDS ORDERED: ONDANSETRON 4 MG/2 ML VIAL IV PRN (21:08)
[2022-02-19] MEDS ORDERED: ACETAMINOPHEN 325 MG TABLET PO PRN (21:08)
[2022-02-19] MEDS: ENOXAPARIN 40 MG/0.4 ML SYRINGE SUBCUT SCH (22:15)
[2022-02-19] MEDS: methylPREDNISolone SOD SUC 40 MG/1 ML VIAL IV SCH (22:16)
[2022-02-19] MEDS: SODIUM CHLORIDE 0.45% 1,000 ML IV SCH (22:18)
[2022-02-20 04:25] LABS: Basophils % 0.1 % (0.0-0.8); Hematocrit 38.1 VOL% (35.7-47.0); Hemoglobin 12.4 GM/DL (12.0-16.0); Immature Granulocytes % 0.5 %; Immature Granulocytes Absolute 0.08 #; Lymphocytes # 1.1 10*3/uL (1.4-4.0); Lymphocytes % 6.4 % (21.3-54.2); Mean Corpuscular HGB Conc 32.5 GM/DL (32-36); Mean Corpuscular Volume 102.1 FL (87-102); Mean Platelet Volume 10.7 FL (9.6-12.0); Monocytes # 0.3 10*3/uL (0.11-0.8); Monocytes % 1.8 % (1.7-12.7); Neutrophils % 91.2 % (38.7-73.9); Platelet Count 226 T/CUMM (130-400); Red Blood Count 3.73 MC/CUMM (3.8-5.5); Red Cell Distribution Width 13.5 % (9.3-17.3); White Blood Count 16.5 T/CUMM (4-12)
[2022-02-20 05:00] LABS: Band Neutrophils 10 % (0-10); Lymphocytes 4 % (20-55); Total Cells Counted 100
[2022-02-20 05:02] LABS: Platelet Estimate Normal
[2022-02-20 05:36] LABS: Calcium 9.7 MG/DL (8.5-10.1); Osmolality,Calculated 285.3 MOS/KG (273-304); Potassium 3.5 MMOL/L (3.5-5.1)
[2022-02-20] MEDS: methylPREDNISolone SOD SUC 40 MG/1 ML VIAL IV SCH ×3 (06:18→21:54)
[2022-02-20] MEDS: SODIUM CHLORIDE 0.45% 1,000 ML IV SCH (06:20)
[2022-02-20] MEDS: POTASSIUM CHLORIDE 10 MEQ TABLET PO SCH ×2 (08:47→17:20)
[2022-02-20] MEDS ORDERED: hydroCHLOROthiazide 12.5 MG CAPSULE PO SCH (09:00)
[2022-02-20] MEDS ORDERED: ETODOLAC 400 MG TABLET PO SCH (09:00)
[2022-02-20] MEDS ORDERED: INFLUENZA VIRUS VACCINE 0.5 ML SYRINGE IM ONE (09:55)
[2022-02-20] MEDS: ALBUTEROL/IPRATROPIUM 3 ML NEB RESP TX SCH ×5 (10:22→20:18)
[2022-02-20] MEDS: MEGESTROL 40 MG TABLET PO SCH (10:55)
[2022-02-20] MEDS: OXYBUTYNIN 5 MG TABLET PO SCH (10:56)
[2022-02-20] MEDS: PANTOPRAZOLE 40 MG TABLET PO SCH (10:56)
[2022-02-20] MEDS: NON-FORMULARY MEDICATION (Fluticasone-Umeclidin-Vilanter [Trelegy Ellipta] 100-62.5-25 mcg INH SCH (10:57)
[2022-02-20] MEDS: MONTELUKAST 10 MG TABLET PO SCH (10:57)
[2022-02-20] MEDS: LACTATED RINGERS 1,000 ML IV SCH ×2 (10:58→19:27)
[2022-02-20] MEDS: OSELTAMIVIR 75 MG CAPSULE PO SCH ×2 (12:26→21:54)
[2022-02-20] MEDS: LEVOFLOXACIN INJ 750 MG/150 ML PREMIX IV SCH (15:26)
[2022-02-20] MEDS ORDERED: GABAPENTIN 300 MG CAPSULE PO SCH (21:00)
[2022-02-20] MEDS ORDERED: cloNIDine 0.1 MG TABLET PO SCH (21:00)
[2022-02-20] MEDS: ENOXAPARIN 40 MG/0.4 ML SYRINGE SUBCUT SCH (21:54)
[2022-02-21] MEDS: ALBUTEROL/IPRATROPIUM 3 ML NEB RESP TX SCH ×3 (01:53→14:41)
[2022-02-21] MEDS: LACTATED RINGERS 1,000 ML IV SCH ×2 (03:47→10:48)
[2022-02-21] MEDS: methylPREDNISolone SOD SUC 40 MG/1 ML VIAL IV SCH (05:54)
[2022-02-21 06:29] LABS: Basophils % 0.2 % (0.0-0.8); Hematocrit 37.5 VOL% (35.7-47.0); Hemoglobin 12.4 GM/DL (12.0-16.0); Immature Granulocytes % 1.1 %; Immature Granulocytes Absolute 0.29 #; Lymphocytes # 1.7 10*3/uL (1.4-4.0); Lymphocytes % 6.5 % (21.3-54.2); Mean Corpuscular HGB Conc 33.1 GM/DL (32-36); Mean Corpuscular Volume 102.5 FL (87-102); Mean Platelet Volume 10.7 FL (9.6-12.0); Monocytes # 0.9 10*3/uL (0.11-0.8); Monocytes % 3.6 % (1.7-12.7); Neutrophils % 88.6 % (38.7-73.9); Platelet Count 252 T/CUMM (130-400); Red Blood Count 3.66 MC/CUMM (3.8-5.5); Red Cell Distribution Width 13.6 % (9.3-17.3); White Blood Count 25.7 T/CUMM (4-12)
[2022-02-21 06:51] LABS: Band Neutrophils 1 % (0-10); Lymphocytes 4 % (20-55); Total Cells Counted 100
[2022-02-21 06:52] LABS: Hypochromia Slight; Microcytosis Slight; Platelet Estimate Adequate
[2022-02-21 07:08] LABS: Alanine Aminotransferase 18 U/L (13-56); Albumin 2.5 G/DL (3.4-5.0); Alkaline Phosphatase 88 U/L (45-117); Aspartate Amino Transferase 11 U/L (0-37); Bilirubin,Total < 0.39 MG/DL (0.20-1.00); Blood Urea Nitrogen 20 MG/DL (7-18); Carbon Dioxide 26 MMOL/L (21-32); Chloride 112 MMOL/L (98-107); Glucose 131 MG/DL (74-106); Potassium 3.8 MMOL/L (3.5-5.1); Sodium 143 MMOL/L (136-145); Total Protein 6.6 G/DL (6.4-8.2)
[2022-02-21] MEDS: MEGESTROL 40 MG TABLET PO SCH (09:16)
[2022-02-21] MEDS: OSELTAMIVIR 75 MG CAPSULE PO SCH (09:16)
[2022-02-21] MEDS: PANTOPRAZOLE 40 MG TABLET PO SCH (09:17)
[2022-02-21] MEDS: POTASSIUM CHLORIDE 10 MEQ TABLET PO SCH (09:17)
[2022-02-21] MEDS: OXYBUTYNIN 5 MG TABLET PO SCH (09:17)
[2022-02-21] MEDS: MONTELUKAST 10 MG TABLET PO SCH (09:17)
[2022-02-21] MEDS: NON-FORMULARY MEDICATION (Fluticasone-Umeclidin-Vilanter [Trelegy Ellipta] 100-62.5-25 mcg INH SCH (09:25)
[2022-02-21 12:20] VITALS: BP 150/63
[2022-02-21] MEDS ORDERED: methylPREDNISolone SOD SUC 40 MG/1 ML VIAL IV SCH (14:00)
[2022-02-21] MEDS: LEVOFLOXACIN INJ 750 MG/150 ML PREMIX IV SCH (14:41)
== END 2022-02-21 14:54 | disposition home or self-care (01) | DRG 194 ==
LOC: N.ED 12:25 → N.EDINP 21:08 → N.5E 02-20 09:39
PROVIDERS: ADMIT Internal Medicine; ATTEND Internal Medicine